=== PATIENT | male | born 1965 | race Caucasian/White ===

== ENCOUNTER → 2018-02-25 08:52 | Emergency (ER) | payer BC ==
[~2018-02-25 08:52] MED LIST: Fluorescein Sod TOPICAL 0.6* 0.6 MG TEST OPHTHALMIC ONE; Tetan/Diph/Pertus SYR(Tdap)* 0.5 ML SYR(BOOSTRIX) use SYR IM ONE; Tetracaine 0.5% OPTH.SOL 4 ML* 1 DROP BTL BOTH EYES ONE
[2018-02-25 10:56] VITALS: BP 148/93
--- NOTE | 2018-02-25 11:04 | ED ---
Throat Pain/Nasal Congestion - History of Current Complaint Chief Complaint: EDEyeProblem Time Seen by Provider: 02/25/18 09:08 Hx Obtained From: Patient - Allergies/Home Medications Allergies/Adverse Reactions: Allergies Allergy/AdvReac Type Severity Reaction Status Date / Time No Known Allergies Allergy Verified 03/07/17 10:19 PMH/Surg Hx/FS Hx/Imm Hx Previously Healthy: Yes Endocrine/Hematology History: Denies: Hx Diabetes Cardiovascular History: Denies: Hx Hypertension, Hx Pacemaker/ICD History: Denies: Hx Renal Disease Musculoskeletal History: Reports: Hx Arthritis, Hx Back Problems Sensory History: Reports: Hx Contacts or Glasses Denies: Hx Hearing Aid Opthamlomology History: Reports: Hx Contacts or Glasses Psychiatric History: Denies: Hx Panic Disorder - Surgical History Surgery Procedure, Year, and Place: cervical discectomy 1999-. GLASS REMOVED FORM FINGER - Immunization History Date of Tetanus Vaccine: within 10 years Date of Influenza Vaccine: 2013 Immunizations Up to Date: Unable to Obtain/Confirm Infectious Disease History: No Infectious Disease History: Denies: Traveled Outside the [place] in Last 30 Days - Social History Occupation: Employed Full-time Lives: With Family Alcohol Use: Weekly Substance Use Type: Reports: None Smoking Status (MU): Current Every Day Smoker Type: Cigarettes Amount Used/How Often: 1/2 ppd Have You Smoked in the Last Year: Yes Review of Systems Positive: Other - Pain and swelling to right eye All Other Systems Reviewed And Are Negative: Yes Physical Exam Triage Information Reviewed: Yes Vital Signs On Initial Exam: Initial Vitals Temp Pulse Resp BP Pulse Ox 97.6 F 57 19 147/93 99 02/25/18 09:00 02/25/18 09:00 02/25/18 09:00 02/25/18 09:00 02/25/18 09:00 Vital Signs Reviewed: Yes Appearance: Positive: Well-Appearing - Pt. sitting on bed wearing sunglasses. Friend/family member present. Skin: Positive: Warm, Dry Head/Face: Positive: Normal Head/Face Inspection Eyes: Positive: Other: - Right conjunctiva is mildly erythemaous. Upper and lower lids are mildly erythematous and edematous. EOM intact without pain. No purulent drainage. Neck: Positive: Supple Neurological: Positive: Normal, CN Intact II-III Psychiatric: Positive: Affect/Mood Appropriate Diagnostics - Vital Signs Vital Signs Temp Pulse Resp BP Pulse Ox 02/25/18 09:00 97.6 F 57 19 147/93 99 - Laboratory Lab Statement: Any lab studies that have been ordered have been reviewed, and results considered in the medical decision making process. EENT Course/Dx - Course Course Of Treatment: Pt. presenting for evaluation after being scratched to his right eye by his dog last night. Tetanus was updates. He does have a moderate size corneal abrasion on exam. He does have mild redness and swelling to eyelids. [facility] as documented. I did talk to oncraymundo ophtho., Dr. Connell, he recommends using a quinolone for treatment and they will see him in the office for f.u this week. Will also cover with augmentin. Advised tylenol or motrin for pain and cool compresses. To call eye office tomorrow for apt. To return to ER for vision change, increases pain, swelling, redness, drainage or if concerned. Pt. understands and agrees with plan. - Differential Diagnoses Differential Diagnoses: Cellulitis, Corneal Abrasion - Diagnoses Provider Diagnoses: Corneal abrasion Discharge - Sign-Out/Discharge Documenting (check all that apply): Discharge/Admit/Transfer - Discharge Plan Condition: Good Disposition: HOME Prescriptions: Amoxicillin/Clavulanate TAB* [Augmentin TAB 875*] 875 mg PO BID #20 tab Ciprofloxacin 0.3% OPTH.PEGGY* [Cipro 0.3% Opth*] 2 drop RIGHT EYE Q2H #1 btl Patient Education Materials: Corneal Abrasion (ED) Referrals: Session Woody THOMPSON [Primary Care Provider] - Ezra Connell MD [Medical Doctor] - Additional Instructions: Call Dr. Connell's office tomorrow morning to schedule an appointment Medication as directed Apply cool compress Tylenol or Motrin for pain as directed Return to ER for increased pain, vision changes, redness, swelling, drainage or if concerned - Billing Disposition and Condition Condition: GOOD Disposition: Home
== END | disposition home or self-care (01) ==
LOC: ED 08:52
DX: S05.01XA Injury of conjunctiva and corneal abrasion without foreign body, right eye, initial encounter (principal); X58.XXXA Exposure to other specified factors, initial encounter; Y92.9 Unspecified place or not applicable; F17.210 Nicotine dependence, cigarettes, uncomplicated; Z23 Encounter for immunization
CPT/HCPCS: 90471; 90715; 99282; A9270-GY